=== PATIENT | male | born 1965 | race Caucasian/White ===

== ENCOUNTER 2021-09-03 08:13 | Outpatient (CLI) | payer MEDICARE, MEDICAID, SELFPAY ==
--- NOTE | 2021-09-03 08:30 | CT_ITS ---
WS: [id number] CT TEMPORAL BONES TECHNIQUE: Noncontrast CT of the temporal bones with coronal and sagittal reformatted images. CLINICAL INFORMATION: Ear Pain COMPARISON: None. DLP: 683.[address] scans at [facility] use at least one of these dose optimization techniques: automated e xposure control; mA and/or kV adjustment per patient size (includes targeted exams where dose is matc hed to clinical indication); or iterative reconstruction. FINDINGS: Visualized paranasal sinuses are well aerated. Mild mucosal thickening in the ethmoid air cells. Norm al posterior nasopharynx. Normal parapharyngeal fat. RIGHT: Chronic postoperative changes partial right mastoidectomy. 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 Blunting of the scutum. Thinning of the tegmen tympani which appears intact. Soft tissue thickening involving the mastoidectomy bowl. Mild mucosal thickening involving the middle ear . Soft tissue thickening involving Prussak's space. Inner ear structures otherwise appear normal. LEFT: Mild mucosal thickening with small amount of fluid left mastoid tip. Normal external auditory canal. Ossicles are normal in appearance. Middle ear is well aerated. Normal tegmen tympani. Semicircular ca nals and cochlea are normal in appearance. Prussak's space is normal. Normal inner ear structures. No rmal vestibular aqueduct. Facial nerve recess is normal. Visualized intracranial contents and posterior fossa are normal. CT/CT temporal bone wo con* [id number] IMPRESSION: 1. Prior postoperative changes right mastoidectomy. 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 Blunting of the scutum. 2. Soft tissue thickening involving the mastoidectomy bowl and Prussak's space . Recommend direct visualization. Small amount of mucosal thickening in the mid dle ear. Findings most likely postoperative but residual cholesteatoma not enti rely excluded. 3. Small amount of fluid/mucosal thickening left mastoid tip. 4. Middle ear structures otherwise appear normal bilaterally.
== END 2021-09-03 08:14 | disposition home or self-care (01) ==
PROVIDERS: Visit Provider Otolaryngology
DX: H92.03 Otalgia, bilateral (principal)
CPT/HCPCS: 70480